=== PATIENT | female | born 1965 | race Caucasian/White ===

== ENCOUNTER → 2017-08-10 | Outpatient (CLI) | payer OTHER ==
[~2017-08-10] MED LIST: NAPROXEN SODIU550 M1 PO
== END | disposition home or self-care (01) ==
LOC: LAB 14:51
DX: J11.1 Influenza due to unidentified influenza virus with other respiratory manifestations (principal)

== ENCOUNTER 2018-12-14 09:43 | Emergency (ER) | payer OTHER ==
[~2018-12-14] VITALS: Ht 157.5 cm; Wt 59.0 kg
[2018-12-14] MEDS ORDERED: MAXIMUM D310000 UNIT (10:25)
[2018-12-14] MEDS ORDERED: BACTRIM DS TAB1 EACH PO (14:06)
[2018-12-14] MEDS ORDERED: INTESTINEX680 M1 PO (14:06)
== END 2018-12-14 14:49 | disposition home or self-care (01) ==
LOC: ER 09:43
DX: N39.0 Urinary tract infection, site not specified (principal)

== ENCOUNTER 2023-02-27 13:46 | Outpatient (CLI) | payer OTHER ==
[~2023-02-27 13:46] MED LIST changes: +BACTRIM DS TAB1 EACH PO; +INTESTINEX680 M1 PO; +MAXIMUM D310000 UNIT
== END 2023-02-27 13:52 | disposition home or self-care (01) ==
LOC: NUCLEAR 13:46
PROVIDERS: ATTEND Obstetrics & Gynecology Gynecology
DX: M81.0 Age-related osteoporosis without current pathological fracture (principal)

== ENCOUNTER 2025-01-17 08:23 | Outpatient (CLI) | payer OTHER | END 2025-01-17 08:24 | disposition home or self-care (01) | LOC: TOM 08:23 | PROVIDERS: ATTEND Internal Medicine Gastroenterology | DX: Z12.11 Encounter for screening for malignant neoplasm of colon (principal) ==